=== PATIENT | female | born 1955 | race Caucasian/White ===

== ENCOUNTER 2017-10-13 13:13 | Emergency (ER) | payer BC ==
[~2017-10-13] VITALS: Ht 162.6 cm; Wt 54.5 kg
[~2017-10-13 13:13] MED LIST: DUO-KAPS1 CAP PO; FOLIC ACID0.4 MG PO; NORCO 325 MG-51 TAB PO
[2017-10-13 13:21] VITALS: TEMP 97.8
[2017-10-13] MEDS ORDERED: NORCO 325 MG-51 TAB PO (15:06)
[2017-10-13 15:10] VITALS: BP 147/89; PULSE 81
== END 2017-10-13 15:20 | disposition home or self-care (01) ==
LOC: COL.ER 13:13
DX: S42.92XA Fracture of left shoulder girdle, part unspecified, initial encounter for closed fracture (principal); X50.0XXA Overexertion from strenuous movement or load, initial encounter; W19.XXXA Unspecified fall, initial encounter; Y92.009 Unspecified place in unspecified non-institutional (private) residence as the place of occurrence of the external cause
CPT/HCPCS: J2405; J2704

== ENCOUNTER 2019-06-28 14:16 | Inpatient (IN) | payer BC ==
[~2019-06-28] VITALS: Ht 160 cm; Wt 54.5 kg
[2019-06-28] VITALS (9 sets, daily range): BP systolic 111–132; BP diastolic 52–73; PULSE 72–93; TEMP 97.8–98.4
[2019-06-28 15:43] LABS: BASO % 0.2 % (0.0-2.0); GRAN # 10.4 (1.4-6.5); GRAN % 84.1 % (42.2-75.2); HEMATOCRIT 41.6 % (37.0-47.0); HEMOGLOBIN 14.2 g/dl (12.5-16.0); LYMPH # 1.1 (1.2-3.4); LYMPH % 9.1 % (20.0-51.0); MEAN CELL VOLUME 102 fl (80.0-100.0); MEAN CORPUSCULAR HEMOGLOBIN 35 pg (27.0-31.0); MEAN CORPUSCULAR HGB CONC 34 g/dl (33.0-37.0); MONO # 0.8 (0.1-0.6); MONO % 6.2 % (1.7-9.3); PLATELET COUNT 206 K/mm3 (130-400); REDCELL DISTRIBUTION WIDTH-CV 12.1 % (11.5-14.5)
[2019-06-28 15:53] LABS: ALBUMIN 4.7 gm/dL (3.5-5.0); BILIRUBIN,TOTAL 1.4 mg/dL (0.0-1.0); CALCIUM 9.3 mg/dL (8.4-10.2); CREATININE, serum 0.54 (0.52-1.25); POTASSIUM 4.5 mmol/L (3.4-5.0); TOTAL PROTEIN 7.8 gm/dL (6.4-8.2)
[2019-06-28 15:54] LABS: COLLECTION METHOD CLEAN CATCH
[2019-06-28 16:14] LABS: AMORPHOUS CRYSTAL Present /uL; MUCOUS Present /lpf; PH 5 (5-8); SQUAMOUS EPITHELIAL 0-2 /hpf; URINE APPEARANCE Hazy; URINE BACTERIA Rare /hpf; URINE BILIRUBIN Negative (NEGATIVE); URINE BLOOD 2+ (NEGATIVE); URINE COLOR Yellow; URINE GLUCOSE Negative (NEGATIVE); URINE KETONE Trace (NEGATIVE); URINE LEUKOCYTE ESTERASE Negative (NEGATIVE); URINE NITRATE Negative (NEGATIVE); URINE PROTEIN(semi-quant) Negative (NEGATIVE); URINE UROBILINOGEN Negative (NEGATIVE)
--- NOTE | 2019-06-28 20:15 | NUR ---
Arrived to room 324 via bed from PACU. Admission assessment complete. Oriented to room/policy. Post Op vitals initiated. IV to R AC-fluids infusing without difficulty. [place] hose/SCDs applied bilat. Dressing to right hip x2-gauze/tegaderm-CDI. Denies nausea/shortness of breath/pain. CMS WNL. Block in place. Denies needs. Call light in reach. WIll monitor.
[2019-06-29] VITALS (7 sets, daily range): BP systolic 97–119; BP diastolic 48–56; PULSE 72–86; TEMP 98.1–98.7
--- NOTE | 2019-06-29 01:15 | NUR ---
Up out of bed at this time to bedside commode. Assisted back to bed. C/O pain to right hip-rating 8/10 on pain scale-described as sharp intermittent pains. Has only tolerated a small amount of liquids-Morphine 2mg given IV per dr order. Will monitor.
--- NOTE | 2019-06-29 05:00 | NUR ---
Rested well this shift. C/O pain x1-IV morphine given per dr order. Denies nausea/shortness of breath. Instruction given on IS-demonstrated proprer technique. Instructed to do q1h while awake for 10 reps. Verbalizes understanding. Did sit on side of bed and stand for a few minutes. Tolerated a small amount of clear liquids. D5 1/2NS continues to infuse at 60mls/hr. Has had 450 out to [place]. Gauze/tegaderm dressing x2 remains C/D/I. Fresh ice pack applied. SCDs/Teds bilat. Discussed nicotine patch vs nicotine gum-would like the patch ordered-will pass on to day shift. Denies needs. Will monitor.
[2019-06-29 08:25] LABS: HEMATOCRIT 32.4 % (37.0-47.0)
--- NOTE | 2019-06-29 08:35 | NUR ---
Patient resting in bed. She has been up to bedside commode, reports being "gassy". No Bm. Ranjith DC per orders. Patient one assist. She ate a small amount of breakfast, reports not eating until 11 on the weekends. Ortho rounded, new dressings were applied to Right hip. Ice back on. Teds & scds. Patient requested just 1/2 tab of [place] for her hip pain. Medicated per request. Student nurse assisting with cares. Will monitor.
--- NOTE | 2019-06-29 18:05 | NUR ---
Patient has done well today, sat up in the chair alot of the afternoon, she has been ambulating to the bathroom, steady gait with walker. She has been doing leg exercise in bed. Voiding adequately & has had a Bm. Toradol & 0.5 tab of [place] had managed her pain. Her appetite has improved this evening. Her family is going to bring her clothing from home to wear. She brushed her teeth, fresh linens. Patient ready & wanting to discharge home tmrw with family assist at home. Patient is concerned about how long it will take her to get back to work.
--- NOTE | 2019-06-29 18:39 | NUR ---
Patient awake and alert throughout the day. She had family visiting most of the afternoon. She ambulated to the bathroom using the walker and tolerated well. Patient continues to recieve scheduled toradol for pain and states that it helps.
--- NOTE | 2019-06-29 20:00 | NUR ---
Report received. Assumed care for mini shifter. A&Ox3. Assessment complete. VS stable. Up out of bed to bathroom-stand by assist/walker. Voided without difficulty. Rating pain 4/10 on pain scale-described as intermittent cramping to thigh-denies need for intervention. Right hip dressingx2 gauze/tegaderm-CDI. Distal dressing bandaid-CDI. Fresh ice pack applied to right hip. SCDs/TEDs bilat. Denies questions/concerns. Encouraged to call needs. Verbalizes understanding. Call light in reach. Will monitor.
[2019-06-30 03:51] VITALS: BP 117/59; PULSE 83; TEMP 99.8
[2019-06-30 08:22] VITALS: BP 112/66; PULSE 82; TEMP 98.1
[2019-06-30 08:42] LABS: BASO % 0.1 % (0.0-2.0); EOS % 0.4 % (0-4.0); GRAN # 4.3 (1.4-6.5); GRAN % 61.2 % (42.2-75.2); HEMOGLOBIN 10.1 g/dl (12.5-16.0); LYMPH # 1.8 (1.2-3.4); LYMPH % 26.1 % (20.0-51.0); MEAN CELL VOLUME 102 fl (80.0-100.0); MEAN CORPUSCULAR HEMOGLOBIN 35 pg (27.0-31.0); MEAN CORPUSCULAR HGB CONC 34 g/dl (33.0-37.0); MEAN PLATELET VOLUME 9.4 fl (7.4-10.4); MONO # 0.8 (0.1-0.6); MONO % 11.6 % (1.7-9.3); PLATELET COUNT 171 K/mm3 (130-400); RED BLOOD COUNT 2.92 M/mm3 (4.10-5.30); REDCELL DISTRIBUTION WIDTH-CV 11.9 % (11.5-14.5)
[2019-06-30 08:43] LABS: HEMATOCRIT 29.8 % (37.0-47.0)
[2019-06-30] MEDS ORDERED: ASPI325T6 PO (09:15)
[2019-06-30] MEDS ORDERED: NORCO 325 MG-7.1 TAB PO (09:18)
--- NOTE | 2019-06-30 10:00 | NUR ---
[employer] Inspector attended clinical rounds with the team and patient to discharge home today. SW checked PT note which recommended home with family assist. SW met with patient to discuss discharge planning. [place] Patient does not have primary care set up at this time but reports she used to see Dr. Dueñas before he retired at [facility] in [place]. SW advised the Hospitalist would like to set up a follow up appointment with a primary care physician. Patient reports it is most convenient for her to go to appointments in [place]. Patient states she is agreeable to have an appointment set up with one of the providers at the [facility] in [place]. RACHEL provided this update to Saumya Gomes Clerk who will schedule follow up appointment. Patient obtains medications from [facility] pharmacy with no difficulties. Patient does not normally use any DME but has a walker at home to use during recovery from her surgery. Patient is normally independent with ADLS and plans to return home upon discharge. No additional needs at this time.
[2019-06-30 12:04] VITALS: BP 126/70; PULSE 99; TEMP 98.4
--- NOTE | 2019-06-30 12:28 | NUR ---
AGREE WITH STUDENTS ASSESSMENTS THIS AM. DISCHARGE INSTRUCTIONS REVIEWED AND QUESTIONS SOLICITED AND ANSWERED. PT OUT TO POV PER WHEEL CHAIR WITH STAFF. DRESSINGS TO RIGHT HIP CDI AND NEW DRESSING SUPPLIES SENT WITH PATIENT.
== END 2019-06-30 12:30 | disposition home or self-care (01) | DRG 482 ==
LOC: COL.ER 14:18 → SURG 15:29
PROVIDERS: Family Medicine; Orthopaedic Surgery; Physician Assistant; ADMIT Student in an Organized Health Care Education/Training Program
PROC: 0QS636Z Reposition Right Upper Femur with Intramedullary Internal Fixation Device, Percutaneous Approach (ICD-10-PCS; principal; 2019-06-28 18:00)
DX: S72.141A Displaced intertrochanteric fracture of right femur, initial encounter for closed fracture (principal); W18.31XA Fall on same level due to stepping on an object, initial encounter; Y92.007 Garden or yard of unspecified non-institutional (private) residence as the place of occurrence of the external cause; F17.210 Nicotine dependence, cigarettes, uncomplicated; Z88.6 Allergy status to analgesic agent; Z88.7 Allergy status to serum and vaccine; D64.9 Anemia, unspecified; E80.6 Other disorders of bilirubin metabolism
CPT/HCPCS: 99232-AI; 99238; A9284; C1713; C1769; J0690; J1885; J2250; J2270; J2405; J2704; J3010; J7120